=== PATIENT | female | born 1990 | race African-American/Black ===

== ENCOUNTER 2022-10-31 09:05 | Emergency (ER) | payer BC ==
[2022-10-31] VITALS (10 sets, daily range): BP systolic 102–145; BP diastolic 71–94
[~2022-10-31] VITALS: Ht 175.3 cm; Wt 136.0 kg
[2022-10-31 09:54] LABS: BASO% 0.7 % (0-3); EOS% 0.5 % (0-8); HEMOGLOBIN 13.6 g/dl (12.0-16.0); IMMATURE GRANULOCYTES 0.2 % (0.0-5.0); MEAN CELL VOLUME 86.1 fL CALC (80.0-100.0); MEAN CORPUSCULAR HGB 26.6 pG CALC (26.0-32.0); MEAN CORPUSCULAR HGB CONC 30.9 g/dL CAL (32.0-36.0); NEUT# 1.79 thou/uL (2.00-7.15); NEUT% 42.6 % (42-76); RED BLOOD COUNT 5.11 mill/uL (4.20-5.60)
[2022-10-31 10:04] LABS: ALBUMIN 4.2 g/dL (3.2-5.0); ALKALINE PHOSPHATASE 97 u/l (38-126); ANION GAP 11 (6-22 (CALC)); BILIRUBIN, TOTAL 0.5 mg/dL (0.0-1.4); BUN 7 mg/dL (7-17); BUN/CREATININE RATIO 9 (12-20 (CALC)); CARBON DIOXIDE 27 mmol/l (22-30); CHLORIDE 103 mmol/l (95-108); CREATININE 0.7 mg/dL (0.5-1.0); GFR FOR AFR.AMER. > 60 ML/MIN (>=60 (CALC)); GFR OTHER RACES > 60 ML/MIN (>=60 (CALC)); POTASSIUM 3.8 mmol/l (3.5-5.1); SGOT/AST 34 u/l (14-36); SODIUM 137 mmol/l (137-146)
[2022-10-31] MEDS ORDERED: GUAIFENESIN AC PO (11:23)
[2022-10-31] MEDS ORDERED: FLONASE AL50 MCG/ACT (11:23)
[2022-10-31] MEDS ORDERED: TAM75CAP PO (11:23)
[2022-10-31] MEDS ORDERED: BENZONATATE200 MG PO (11:23)
== END 2022-10-31 11:41 | disposition home or self-care (01) | DRG 195 ==
LOC: ED 09:05
PROVIDERS: Family Medicine
DX: J10.1 Influenza due to other identified influenza virus with other respiratory manifestations (principal); Z20.822 Contact with and (suspected) exposure to COVID-19

== ENCOUNTER 2023-11-23 17:23 | Emergency (ER) | payer SELFPAY ==
[~2023-11-23 17:23] MED LIST: BENZONATATE200 MG PO; FLONASE AL50 MCG/ACT; GUAIFENESIN AC PO; TAM75CAP PO
== END 2023-11-23 19:25 | disposition left against medical advice (07) | DRG 951 ==
LOC: ED 17:23 → LWOBS 19:24 → ED 19:24 → LWOBS 19:25
DX: Z53.21 Procedure and treatment not carried out due to patient leaving prior to being seen by health care provider (principal)